=== PATIENT | female | born 1995 | race Caucasian/White ===

== ENCOUNTER 2021-02-19 06:56 | Outpatient (CLI) | payer BC | END 2021-02-19 06:57 | disposition home or self-care (01) | LOC: BICMRI 06:56 | DX: E22.1 Hyperprolactinemia (principal); D35.2 Benign neoplasm of pituitary gland | CPT/HCPCS: 70553 ==

== ENCOUNTER 2021-09-15 07:51 | Outpatient (CLI) | payer BC ==
[2021-09-15 08:23] LABS: BHCG - Serum Negative (NEGATIVE); Pregs Control Background? CLEAR/WHITE (CLR/WHITE); Pregs Control Bar Appear? YES (CONTROL BAR)
[2021-09-15] MEDS ORDERED: Iopamidol 300 61% 50 ML VIAL FS ONE (10:16)
== END 2021-09-15 07:52 | disposition home or self-care (01) ==
LOC: RAD 07:51
PROVIDERS: ATTEND Advanced Practice Midwife
DX: Z31.41 Encounter for fertility testing (principal); N88.3 Incompetence of cervix uteri
CPT/HCPCS: 36415; 58340; 74740; 84703; Q9967